=== PATIENT | female | born 1980 | race Caucasian/White ===

== ENCOUNTER → 2017-11-07 | Outpatient (REF) | payer OTHER | LOC: M SFHCLERA 12:22 | DX: R53.81 Other malaise (principal) ==

== ENCOUNTER → 2019-01-18 | Outpatient (REF) | payer OTHER ==
[2019-01-18 14:31] LABS: BASO # 0.1 10^3/uL (0.0-0.2); BASO % 1.1 % (0.0-1.0); EOS # 0.1 10^3/uL (0.0-0.50); EOS % 1.7 % (0.0-3.0); HEMATOCRIT 34.8 % (36.0-47.0); HEMOGLOBIN 11.2 g/dl (12.0-15.5); LYMPH # 1.9 10^3/uL (1.5-4.5); LYMPH % 26.3 % (24.0-44.0); MEAN CORPUSCULAR HEMOGLOBIN 29.3 pg (27.0-33.0); MEAN CORPUSCULAR HGB CONC 32.2 g/dl (32.0-36.5); MEAN CORPUSCULAR VOLUME 91.1 fl (80.0-96.0); MONO # 0.6 10^3/uL (0.0-0.8); MONO % 8.5 % (0.0-5.0); NEUTROPHILS # 4.5 10^3/uL (1.8-7.7); PLATELET COUNT, AUTOMATED 191 10^3/uL (150-450); RED BLOOD COUNT 3.82 10^6/uL (4.00-5.40); WHITE BLOOD COUNT 7.3 10^3/uL (4.0-10.0)
[2019-01-18 14:39] LABS: ALBUMIN 3.6 GM/DL (3.2-5.2); ALT/SGPT 13 U/L (12-78); BILIRUBIN,TOTAL 0.4 MG/DL (0.2-1.0); BLOOD UREA NITROGEN 10 MG/DL (7-18); CALCIUM LEVEL 8.7 MG/DL (8.5-10.1); CARBON DIOXIDE LEVEL 26 MEQ/L (21-32); CHLORIDE LEVEL 110 MEQ/L (98-107); CHOLESTEROL LEVEL 184 MG/DL (<200); CHOLESTEROL RISK RATIO 3.172 (<5); CREATININE FOR GFR 0.81 MG/DL (0.55-1.30); FREE T4 0.99 NG/DL (0.76-1.46); GLOMERULAR FILTRATION RATE > 60.0 (>60); GLUCOSE, FASTING 88 MG/DL (70-100); HDL CHOLESTEROL 58 MG/DL (>40); LDL CHOLESTEROL 111 MG/DL (<100); NON-HDL-C 126 MG/DL; POTASSIUM SERUM 3.9 MEQ/L (3.5-5.1); SODIUM LEVEL 141 MEQ/L (136-145); TOTAL PROTEIN 6.6 GM/DL (6.4-8.2); TRIGLYCERIDES LEVEL 74 MG/DL (<150)
[2019-01-20 17:39] LABS: FERRITIN 4 NG/ML (8-252)
== END ==
LOC: M SFHCLERA 10:25
PROVIDERS: ATTEND Nurse Practitioner Family
DX: R53.82 Chronic fatigue, unspecified (principal); Z13.220 Encounter for screening for lipoid disorders

== ENCOUNTER → 2019-09-25 | Outpatient (CLI) | payer OTHER ==
--- NOTE | 2019-09-26 03:33 | REP ---
Clinical: Right upper quadrant abdominal pain. Technique: Real time rowe scale ultrasound examination using curved array transducer. Findings: Gallbladder demonstrates multiple gallstones measuring up to approximately 5 mm along with mild bladder wall thickening. No pericholecystic fluid is appreciated. Liver and visualized pancreas are normal in contour, size, and echogenicity without focal hepatic or pancreatic lesion identified. Right kidney is normal in reniform shape and appearance without hydronephrosis and measures 9.3 x 4.8 x 4.2 cm. No ascites in the visualized right upper quadrant. Impression: 1. Cholelithiasis. Electronically Signed by Fernando Hoffman MD 09/26/2019 03:25 A
== END ==
LOC: M LRY 09:00
PROVIDERS: ATTEND Nurse Practitioner Family
DX: R10.9 Unspecified abdominal pain (principal)

== ENCOUNTER → 2019-11-01 | Outpatient (CLI) | payer OTHER ==
[~2019-11-01] MED LIST: FERR325T18 PO; OMEP-218 PO
[2019-11-01 16:43] LABS: ALBUMIN 3.6 GM/DL (3.2-5.2); ALT/SGPT 13 U/L (12-78); BILIRUBIN,DIRECT < 0.1 MG/DL (0.0-0.2); BILIRUBIN,TOTAL 0.3 MG/DL (0.2-1.0); TOTAL PROTEIN 6.9 GM/DL (6.4-8.2)
== END ==
LOC: M LRY 10:54
PROVIDERS: ATTEND Surgery
DX: Z01.818 Encounter for other preprocedural examination (principal)

== ENCOUNTER 2019-11-10 07:02 | Day surgery (SDC) | payer OTHER ==
[~2019-11-10] VITALS: Ht 160 cm; Wt 68.0 kg
[~2019-11-10 07:02] MED LIST changes: +AMPICILLIN SOD/SULBACTAM SOD 3 GM in D5W MINI-BAG PLUS 100 ML IV ONE; +LR 1,000 ML IV ONE
[2019-11-10] MEDS ORDERED: MIDAZOLAM INJ 2 MG/2 ML VIAL (J2250) As Ordered ONE (07:47)
[2019-11-10] MEDS ORDERED: propofoL 200 MG/20 ML VIAL As Ordered ONE (07:47)
[2019-11-10] MEDS ORDERED: fentaNYL 250 MCG/5 ML INJECTION (J3010) As Ordered ONE (07:47)
[2019-11-10] MEDS ORDERED: ROCURONIUM BROMIDE 50 MG/5 ML VIAL As Ordered ONE (07:47)
[2019-11-10] MEDS ORDERED: LIDOCAINE 2% INJ 100 MG/5 ML SDV (FOR ANES.) As Ordered ONE (07:47)
[2019-11-10] MEDS ORDERED: KETOROLAC 60 MG/2 ML VIAL (J1885) As Ordered ONE (07:48)
[2019-11-10] MEDS ORDERED: ONDANSETRON 4MG/2ML VIAL (J2405) As Ordered ONE (07:48)
[2019-11-10] MEDS ORDERED: dexameTHASONE 4 MG/ML 1ML VIAL (J1100) As Ordered ONE (07:48)
[2019-11-10] MEDS ORDERED: LIDOCAINE 1% SDV INJ 30 ML VIAL As Ordered ONE (08:04)
[2019-11-10] MEDS ORDERED: BUPIVACAINE HCL 0.25% 30 ML VIAL As Ordered ONE (08:04)
[2019-11-10] MEDS ORDERED: ACETAMINOPHEN 1000MG 100ML IV BTL (OFIRMEV) (J0131 PER 10MG) As Ordered ONE (09:20)
[2019-11-10] MEDS ORDERED: SUGAMMADEX SODIUM 500 MG/5 ML VIAL (BRIDION) As Ordered ONE (09:28)
[2019-11-10] MEDS ORDERED: ONDANSETRON 4MG/2ML VIAL (J2405) IV PRN ×2 (10:30→11:30)
[2019-11-10] MEDS ORDERED: fentaNYL 100 MCG/2 ML INJECTION (J3010) IV PRN (10:30)
[2019-11-10] MEDS ORDERED: LR 1,000 ML IV SCH (10:30)
[2019-11-10] MEDS ORDERED: PERCOCET 5MG/325MG TAB PO PRN (10:30)
--- NOTE | 2019-11-10 10:48 | ROOPDOC ---
[facility] Report Of Operation Report of Operation DATE OF PROCEDURE: 11/10/19 PREPROCEDURE DIAGNOSES: symptomatic cholelithiasis (biliary colic) POSTPROCEDURE DIAGNOSES: symptomatic cholelithiasis. PROCEDURE: Laparoscopic Cholecystectomy. SURGEON: Elia Stephenson MD MANAGER DIGITAL AD OPERATIONS: ANESTHESIA: General Anesthesia. ESTIMATED BLOOD LOSS: Approximately 20 mL. COMPLICATIONS: none. REMARKS: healthy 39 F with intermittent pain at the RUQ from her gallstones for laparoscopic cholecystectomy. PROCEDURE NOTE: Patient was given a dose Unasyn 3 g IV preoperatively for prophylaxis. She was brought to the operating room, laid supine on the table, compression boots placed for DVT prophylaxis. General endotracheal anesthesia started. Her abdomen then prepped and draped in usual sterile fashion. Surgical timeout was performed prior to starting surgery. Entry into the abdomen done through an incision above the umbilicus. A Veress needle was inserted with a controlled fashion. CO2 insufflation started to pressure 15 mmHg. Using the same incision a 5 mm Visiport was placed under direct vision laparoscope. The area underneath the insertion site was inspected and no injury found. She was then placed in steep reverse Trendelenburg. Her right side was tilted up to further expose the gallbladder. Under direct vision a 11 mm epigastric port and Two 5 mm working ports placed along the right subcostal line. Operative findings: Liver is smooth in contour, gallbladder is moderately distended, relatively thin walled with a few adhesions to the omentum at the body and neck of the gallbladder, with free floating small stones. The fundus of the gallbladder was grasped and the gallbladder was elevated superiorly exposing the neck of the gallbladder. The infundibulum identified and retracted laterally. The peritoneum overlying the area was opened up and dissected free both anteriorly and posteriorly to help with retraction of the gallbladder. The hepatocystic triangle was approached and dissected using a [place] and instrument. The cystic duct was identified coming off from the neck of thr gallbladder; this was circumferentially dissected. The cystic artery was identified in its usual position medially behind a small lymph node of [place]. This was similarly circumferentially dissected off surrounding adipose tissue. We continued posterior dissection further taking down the fibroadipose tissue at the cystic plate clearing this off from the neck of the gallbladder proceeding proximally until a critical view of safety was achieved whereby only the previously identified duct and artery coursing through the neck the gallbladder. (photodocumented) At this point the cystic artery was clipped 4 times and divided. After again checking her anatomy and verifying that the previously identified cystic duct, this was also clipped 4 times and divided. The rest of the gallbladder was then dissected free of the gallbladder bed using Bovie cautery. The gallbladder was then placed in an Endo Catch bag and retrieved outside through the epigastric port site. After re-insufflation the surgical site was inspected. The clips are noted to be in place. No bleeding noted. No bile leakage noted. The abdomen was deflated all ports were removed. The epigastric fascial defect repaired with 0 Vicryl in a mattress fashion. Rest of the skin incisions closed with 4-0 Monocryl in subcuticular fashion. Steri-Strips and gauze dressings were placed, the wound. Patient was informed they awakened, extubated and brought to recovery room stable ELIA STEPHENSON MD Nov 10, 2019 10:48
[2019-11-10] MEDS ORDERED: NORCO, ANEXSIA 5/325MG TABLET (HYDROcodone/ACETAMINOPHEN) PO PRN (11:30)
[2019-11-10 12:30] VITALS: BP 125/74
[2019-11-10] MEDS ORDERED: KETOROLAC 30 MG/ML VIAL (J1885) IV PRN (16:00)
== END 2019-11-10 12:40 | disposition home or self-care (01) ==
LOC: M SDC 07:02
PROVIDERS: ATTEND Surgery
DX: K80.10 Calculus of gallbladder with chronic cholecystitis without obstruction (principal); D64.9 Anemia, unspecified; Z79.899 Other long term (current) drug therapy
CPT/HCPCS: 47562; 88304; J0131; J1100; J1885; J2250; J2405; J3010

== ENCOUNTER → 2021-07-01 | Outpatient (REF) | payer OTHER ==
[~2021-07-01] MED LIST changes: -AMPICILLIN SOD/SULBACTAM SOD 3 GM in D5W MINI-BAG PLUS 100 ML IV ONE; -LR 1,000 ML IV ONE
== END ==
LOC: M SFHCLERA 11:07
PROVIDERS: ATTEND Nurse Practitioner Family
DX: R30.0 Dysuria (principal)